=== PATIENT | female | born 1980 | race Caucasian/White ===

== ENCOUNTER 2024-07-27 11:31 | Emergency (ER) | payer BC, MEDICAID, SELFPAY ==
[2024-07-27 11:36] VITALS: BP 151/82; PULSE 97; TEMP 36.6; O2SAT 94; BMI 51.7
--- NOTE | 2024-07-27 11:40 | XR_ITS ---
WS: [id number] Portable AP upright chest, 07/27/2024 Clinical Data: dyspnea/cough Comparison: None. Findings: No nodules, masses or effusions are seen. The heart is normal. The pulmonary vascularity is not increased. No pneumonia or pneumothorax is seen. 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 There is osteoarthritis of the inferior aspect of the left glenohumeral joint. XR/XR chest 1V portable [id number] Impression: Negative chest.
[2024-07-27 12:02] LABS: Basophils # 0.1 10^3/uL (0.0-0.1); Basophils % 0.7 %; Eosinophils # 0.2 10^3/uL (0.0-0.8); Eosinophils % 1.6 %; Hematocrit 39.1 % (36-47); Lymphocytes # 2.3 10^3/uL (0.8-4.8); Lymphocytes % 22.1 %; Mean Corpuscular HGB Conc 31.2 g/dL (30-55); Mean Corpuscular Hemoglobin 25.5 pg (27-33); Mean Corpuscular Volume 81.8 fl (85-98); Mean Platelet Volume 12.8 fL (7.4-10.4); Monocytes # 0.9 10^3/uL (0.2-0.9); Monocytes % 8.4 %; Neutrophils % 66.9 %; Nucleated Red Blood Cells % 0 %; Platelet Count 246 10^3/cmm (157-399); Red Blood Count 4.78 10^6/uL (3.85-5.65); Red Cell Distribution Width 13.6 % (12.1-15.1)
[2024-07-27 12:19] LABS: Alanine Aminotransferase 21 U/L (0-33); Albumin Level 3.4 g/dL (3.5-5.2); Alkaline Phosphatase 93 U/L (35-105); Anion Gap 14.8 (5-19); Aspartate Amino Transferase 13 U/L (0-32); Blood Urea Nitrogen 10 mg/dL (6-20); Calcium 8.9 mg/dL (8.5-10.5); Carbon Dioxide 25 mmol/L (22-29); Chloride 96 mmol/L (98-107); Creatinine Clr Calc Pharmacy 163.6377; Globulin 3.4 g/dL (1.3-4.6); Glomerular Filtration Rate 91.3 mL/min (90-130); Glucose 143 mg/dL (65-115); Osmolality Calculated 276 mOsm/kg (285-295); Potassium 3.8 mmol/L (3.5-5.1); Sodium 132 mmol/L (136-145); Total Bilirubin 0.6 mg/dL (0.15-1.2); Total Protein 6.8 g/dL (6.6-8.7)
[2024-07-27 12:34] LABS: Influenza A NEGATIVE (Negative); Influenza B NEGATIVE (Negative); Respiratory Syncytial Virus Ce NEGATIVE (Negative); SARS-CoV-2 PCR NEGATIVE (Negative)
--- NOTE | 2024-07-27 12:56 | CT_ITS ---
WS: [id number] CTA OF THE CHEST WITH PULMONARY EMBOLISM PROTOCOL TECHNIQUE: High-resolution contrast enhanced CTA of the chest with coronal and sagittal reformatted images with pulmonary embolism protocol. MIP images are also reviewed. CLINICAL INFORMATION: Hemoptysis COMPARISON: None. DLP: 1022.[address] scans at [facility] use at least one of these dose optimization techniques: automated exposure control; mA and/or kV adjustment per patient size (includes targeted exams where dose is matched to clinical indication); or iterative reconstruction. FINDINGS: Some images degraded due to beam hardening artifact body habitus Proximal main pulmonary arteries are normal. Normal segmental pulmonary arteries. Distal pulmonary arteries not well visualized. No evidence of pulmonary embolus. Lungs are well aerated. Bibasilar atelectasis. Small amount of patchy infiltrate in the RIGHT lower lobe posterior medially may be infectious or inflammatory. Slightly nodular LEFT thyroid. Normal caliber thoracic aorta. Normal caliber descending thoracic aorta. No mediastinal or hilar lymphadenopathy. No axillary lymphadenopathy. Cholecystectomy clips. Fatty liver. Small esophageal hiatal hernia. Adrenal glands are normal. CT/CT angio chest PE protcl [id number] IMPRESSION: 1. No evidence of pulmonary embolus. 2. Slight bibasilar atelectasis. Small amount of patchy infiltrate in RIGHT lo wer lobe posterior medially may be infectious or inflammatory. 3. Small esophageal hiatal hernia.
[2024-07-27 13:41] VITALS: BP 150/88; PULSE 97
--- NOTE | 2024-07-27 13:45 | W.ED.URI ---
HPI - URI/Sore Throat General: Chief Complaint: Upper Respiratory Infection Stated Complaint: congestion Time Seen by Provider: 07/27/24 12:33 History of Present Illness: 44-year-old female presents emergency room cough congestion and generally not feeling well for the last week. She initially had some loose stools she has myalgias and headache cough minimally productive. She did allude to having some mild to moderate hemoptysis with it initially. Associated symptoms: Deny abdominal pain, chills, chest pain or fever(s) Related Data Home Medications ?Medication ?Instructions ?Recorded ?Confirmed atorvastatin 40 mg tablet 40 mg PO BEDTIME 07/27/24 07/27/24 bupropion HCl 300 mg 24 hr tablet, 300 mg PO QAM 07/27/24 07/27/24 extended release (Wellbutrin XL) ergocalciferol (vitamin D2) 1,250 1,250 mcg PO Q7D 07/27/24 07/27/24 mcg (50,000 unit) capsule (Vitamin D2) ferrous sulfate 325 mg (65 mg 325 mg PO BID 07/27/24 07/27/24 iron) tablet propranolol 40 mg tablet 40 mg PO DAILY 07/27/24 07/27/24 quetiapine 300 mg tablet 300 mg PO DAILY 07/27/24 07/27/24 sitagliptin phosphate 100 mg 100 mg PO DAILY 07/27/24 07/27/24 tablet (Januvia) Previous Rx's ?Medication ?Instructions ?Recorded albuterol sulfate 90 mcg/actuation 2 inh inhalation Q4H PRN shortness 07/27/24 aerosol inhaler of breath or wheezing #18 grams levofloxacin 750 mg tablet 750 mg PO DAILY 7 days #7 tabs 07/27/24 Allergies Allergy/AdvReac Type Severity Reaction Status Date / Time acetaminophen (From Tylenol) Allergy Unknown Verified 07/27/24 11:42 bacitracin (From Neosporin Allergy Unknown Verified 07/27/24 11:42 ([id number])) neomycin (From Neosporin Allergy Unknown Verified 07/27/24 11:42 ([id number])) polymyxin B (From Neosporin Allergy Unknown Verified 07/27/24 11:42 ([id number])) Review of Systems Const: Denies: fever(s) or chills Card: Denies: chest pain Resp: Denies: dyspnea GI: Denies: abdominal pain : Denies: dysuria, urinary frequency or urinary urgency Musc: Denies: neck pain or back pain Skin/Breast: Denies: rash Physical Exam Const: COMMON NORMALS: no acute distress GENERAL APPEARANCE: cooperative and comfortable ORIENTATION/CONSCIOUSNESS: Yes awake, Yes oriented to person, Yes oriented to place and Yes oriented to time HENMT: COMMON NORMALS: normocephalic, atraumatic and hearing grossly normal bilaterally HEAD & SCALP: normocephalic and atraumatic Resp: AUSCULTATION: wheezes Cardio: COMMON NORMALS: regular rate, regular rhythm and No murmurs present (Cardio) RATE: regular rate RHYTHM: regular rhythm GI: COMMON NORMALS: Soft to palpation and No hepatosplenomegaly present AUSCULTATION: Yes normoactive bowel sounds PALPATION: Yes Soft to palpation, No Tenderness to palpation present (GI), No Guarding due to palpation present (GI) and Yes No hepatosplenomegaly present Extremity: COMMON NORMALS: normal to inspection, capillary refill normal, no clubbing, cyanosis or edema, no calf tenderness and no pedal edema Neuro: SENSORIUM/ORIENTATION: Yes oriented to person, Yes oriented to place and Yes oriented to time Skin: COMMON NORMALS: no rashes or lesions noted GENERAL SKIN EXAM: no rashes or lesions noted Course Vital Signs: Vital signs: Vital Signs Temperature 97.8 F 07/27/24 11:36 Pulse Rate 97 07/27/24 11:36 Blood Pressure 151/82 07/27/24 11:36 Pulse Oximetry 94 07/27/24 11:36 Oxygen Delivery Me thod Room Air 07/27/24 11:36 MDM - URI/Sore Throat Medical Decision Making Chest x-ray is read as normal patient reported hemoptysis we did do a CTA to rule out PE noted infiltrates on CT consistent with patient's stated history. Will start her on Levaquin also use albuterol as needed follow-up with primary care return if has further problems Medical Records I reviewed the patient's medical records. Lab Data I reviewed the patient's lab results. 07/27/24 11:48 07/27/24 11:48 Radiology Impressions Chest X-Ray 07/27/24 11:40 Impression: Negative chest. Chest CTA 07/27/24 12:56 IMPRESSION: 1. No evidence of pulmonary embolus. 2. Slight bibasilar atelectasis. Small amount of patchy infiltrate in RIGHT lower lobe posterior medially may be infectious or inflammatory. 3. Small esophageal hiatal hernia. Laboratory Results WBC 10.60 10^3/uL (3.29-11.43) 07/27/24 11:48 RBC 4.78 10^6/uL (3.85-5.65) 07/27/24 11:48 Hgb 12.20 g/dL (11.27-16.99) 07/27/24 11:48 Hct 39.1 % (36-47) 07/27/24 11:48 MCV 81.8 fl (85-98) L 07/27/24 11:48 MCH 25.5 pg (27-33) L 07/27/24 11:48 MCHC 31.2 g/dL (30-55) 07/27/24 11:48 RDW 13.6 % (12.1-15.1) 07/27/24 11:48 Plt Count 246 10^3/cmm (157-399) 07/27/24 11:48 MPV 12.8 fL (7.4-10.4) H 07/27/24 11:48 Neut % (Auto) 66.9 % 07/27/24 11:48 Lymph % (Auto) 22.1 % 07/27/24 11:48 [place] % (Auto) 8.4 % 07/27/24 11:48 Eos % (Auto) 1.6 % 07/27/24 11:48 Baso % (Auto) 0.7 % 07/27/24 11:48 Neut # (Auto) 7.10 10^3/uL (1.8-7.7) 07/27/24 11:48 Lymph # (Auto) 2.3 10^3/uL (0.8-4.8) 07/27/24 11:48 [place] # (Auto) 0.9 10^3/uL (0.2-0.9) 07/27/24 11:48 Eos # (Auto) 0.2 10^3/uL (0.0-0.8) 07/27/24 11:48 Baso # (Auto) 0.1 10^3/uL (0.0-0.1) 07/27/24 11:48 Nucleated RBC % (auto) 0 % 07/27/24 11:48 Nucleated RBCs # 0.0 /100WBC 07/27/24 11:48 Sodium 132 mmol/L (136-145) L 07/27/24 11:48 Potassium 3.8 mmol/L (3.5-5.1) 07/27/24 11:48 Chloride 96 mmol/L (98-107) L 07/27/24 11:48 Carbon Dioxide 25 mmol/L (22-29) 07/27/24 11:48 Anion Gap 14.8 (5-19) 07/27/24 11:48 BUN 10 mg/dL (6-20) 07/27/24 11:48 Creatinine 0.7 mg/dL (0.5-0.9) 07/27/24 11:48 GFR Calculation 91.3 mL/min (90-130) 07/27/24 11:48 Glucose 143 mg/dL (65-115) H 07/27/24 11:48 Calculated Osmolality 276 mOsm/kg (285-295) L 07/27/24 11:48 Calcium 8.9 mg/dL (8.5-10.5) 07/27/24 11:48 Total Bilirubin 0.6 mg/dL (0.15-1.2) 07/27/24 11:48 AST 13 U/L (0-32) 07/27/24 11:48 ALT 21 U/L (0-33) 07/27/24 11:48 Alkaline Phosphatase 93 U/L (35-105) 07/27/24 11:48 Total Protein 6.8 g/dL (6.6-8.7) 07/27/24 11:48 Albumin 3.4 g/dL (3.5-5.2) L 07/27/24 11:48 Globulin 3.4 g/dL (1.3-4.6) 07/27/24 11:48 Influenza A (PCR) Negative (Negative) 07/27/24 11:44 Influenza Type B (PCR) Negative (Negative) 07/27/24 11:44 RSV (PCR) Negative (Negative) 07/27/24 11:44 SARS-CoV-2 (PCR) Negative (Negative) 07/27/24 11:44 All radiology interpretation(s) finalized by discharge Discharge Plan Discharge Patient Disposition: Home Clinical Impression: Pneumonia Condition: Stable Prescriptions: New levofloxacin 750 mg tablet 750 mg PO DAILY 7 Days Qty: 7 0RF albuterol sulfate 90 mcg/actuation HFA aerosol inhaler 2 inh INHALATION Q4H PRN (Reason: shortness of breath or wheezing) Qty: 18 0RF No Action atorvastatin 40 mg Tablet 40 mg PO BEDTIME quetiapine 300 mg Tablet 300 mg PO DAILY propranolol 40 mg Tablet 40 mg PO DAILY ferrous sulfate 325 mg (65 mg iron) Tablet 325 mg PO BID ergocalciferol (vitamin D2) [Vitamin D2] 1,250 mcg (50,000 unit) Capsule 1,250 mcg PO Q7D bupropion HCl [Wellbutrin XL] 300 mg Tablet Extended Release 24 Hr 300 mg PO QAM Januvia 100 mg Tablet 100 mg PO DAILY Discharge Orders: Discharge ED (Routine); Ordered 07/27/24 Ordered By: Mendel Regalado Discharge Diet: Usual diet Discharge Activity: Increase activity as tolerated Patient Instructions: Opioid Safety, Pain Management Activity Restrictions/Additional Instructions: Thank you for choosing [facility] for your healthcare needs today. It is very important that you follow up as instructed or that you return to the Emergency Department should you have concerns or if your condition changes or worsens in any way. You are seen in the emergency room with complaints of respiratory symptoms. CTA of your chest did not show any pulmonary embolism but did show some infiltrates suggestive of pneumonia. Will start you on oral antibiotics Levaquin once a day for a week also give albuterol to use. Print Language: Frisian Coding Level of Care Code ED [employer] Specialist for Hafsa Escobar
--- NOTE | 2024-07-27 13:53 | PC.PHAR ---
Pt states she takes several medications but can't give me any name or strength. Pt asked me to phone [facility] Womack for med list. [facility]ouchra gave most current med list last filled 05/19/24 for 30 day supplies, except the iron 325mg daily last fill 03/23/24 30ds. Pt states she took her medications this morning. Last fill dates suggest pt should be out of all of them.
[2024-07-27] MEDS: iohexol 350 mg/mL 500 mL Btl (per mL) IV ×2 (14:02→14:07)
[2024-07-27 15:40] VITALS: PULSE 87; RESP 18; O2SAT 97
[2024-07-27] MEDS: ipratropium-albuterol 3 mL Neb INHALATION (15:40)
[2024-07-27 15:50] VITALS: PULSE 86
[2024-07-27] MEDS: dexamethasone 10 mg/mL INJ IM (15:57)
[2024-07-27 15:58] VITALS: BP 149/96; PULSE 97; O2SAT 96
== END 2024-07-27 16:00 | disposition home or self-care (01) ==
PROVIDERS: Emergency Provider Family Medicine
DX: J18.9 Pneumonia, unspecified organism (principal); Z11.52 Encounter for screening for COVID-19
CPT/HCPCS: 36415; 71045; 71275; 80053; 85025; 87637; 94640; 99285; J1100